=== PATIENT | female | born 2000 | race Caucasian/White ===

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

== ENCOUNTER 2019-03-15 23:20 | Inpatient (IN) | payer BC ==
[~2019-03-15] VITALS: Ht 149.9 cm; Wt 63.8 kg
[2019-03-16 00:57] VITALS: BP 99/57; PULSE 16; RESP 16
[2019-03-16] MEDS ORDERED: LACTATED RINGER'S 1,000 ML IV PRN (00:58)
[2019-03-16] MEDS ORDERED: METHYLERGONOVINE 0.2 MG INJ IM PRN ×2 (01:00→07:00)
[2019-03-16] MEDS ORDERED: CARBOPROST 250 MCG INJ IM PRN ×2 (01:00→07:00)
[2019-03-16] MEDS ORDERED: MISOPROSTOL 200 MCG TAB PR PRN ×2 (01:00→07:00)
[2019-03-16] MEDS ORDERED: OXYTOCIN 30 UNITS/LR 500 ML IV SCH ×3 (01:00→06:38)
[2019-03-16] MEDS ORDERED: LIDOCAINE 1% (MPF) 30 ML INJ INJ PRN (01:00)
[2019-03-16] MEDS ORDERED: OXYTOCIN 30 UNITS/LR 500 ML IV PRN ×2 (01:00→07:00)
[2019-03-16] MEDS ORDERED: MINERAL OIL LIGHT 10 ML VIAL TOP ONE (01:00)
[2019-03-16] MEDS ORDERED: AMPICILLIN 2 GM/NS (PMX) 100 ML IV ONE (01:00)
[2019-03-16] MEDS ORDERED: IBUPROFEN 600 MG TAB PO PRN (01:00)
[2019-03-16] MEDS ORDERED: BUTORPHANOL 2 MG INJ IV PRN ×2 (01:00)
[2019-03-16] MEDS: LACTATED RINGER'S 1,000 ML IV SCH ×2 (01:41→08:24)
--- NOTE | 2019-03-16 04:22 | HP ---
Date/Time of Note Date/Time of Note DATE: 03/16/19 TIME: 04:20 OB - History Hx of Present Free Text/Dictation @38+wks GA in labor : 2 Para: 1 Care: Good Care Ultrasounds: Normal mid trimester US Obstetrical Complications: None Medical Complications: None Past Family/Social History * Past Medical, Surgical, Family and Obstetric Histories reviewed from chart. OB Admission Exam Vital Signs Vital Signs Vital Signs Date Temp Pulse Resp B/P (MAP) Pulse Ox O2 O2 Flow FiO2 Time Delivery Rate 03/16/19 98.3 16 16 99/57 (71) Room Air 00:57 Physical Exam Abdomen: WNL Extremities: Normal Cervical Dilatation: 4cm Effacement: 75% Station: -1 Membranes: Intact Heart Rate: 140's Accelerations: Accelerations Present Decelerations: No Decelerations Varibility: Moderate Contractions on Admission: 6-10 Minutes Apart Last 72 hours Lab Results CBC & BMP 03/16/19 01:30 OB Assessment/Plan Reason for admission: observation Other Assessment: PMH denies PSH Denies Plan: Expectant Management SABIHA SANCHES M.D. Mar 16, 2019 04:22
[2019-03-16] MEDS ORDERED: AMPICILLIN 1 GM/NS (PMX) 50 ML IV SCH (05:00)
[2019-03-16 06:46] VITALS: BP 121/71; PULSE 69; RESP 19
[2019-03-16] MEDS ORDERED: SENNA/DOCUSATE NA (8.6MG/50MG) TAB PO PRN (07:00)
[2019-03-16] MEDS ORDERED: LANOLIN HPA 1 PKT TOP PRN (07:00)
[2019-03-16] MEDS ORDERED: NACL 0.9% 3 ML SYG IV SCH (07:00)
[2019-03-16] MEDS ORDERED: OXYCODONE/ASPIRIN (4.88/325) TAB PO PRN (07:00)
[2019-03-16] MEDS ORDERED: ZOLPIDEM 5 MG TAB PO PRN (07:00)
[2019-03-16] MEDS ORDERED: BENZOCAINE 20% 56 ML SPRAY TOP PRN (07:00)
[2019-03-16] MEDS ORDERED: WITCH HAZEL/GLYCERIN PAD PR PRN (07:00)
[2019-03-16 07:30] VITALS: BP 115/70; PULSE 69; RESP 17
[2019-03-16] MEDS: SENNA/DOCUSATE NA (8.6MG/50MG) TAB PO SCH ×2 (09:10→21:29)
[2019-03-16] MEDS: IBUPROFEN 600 MG TAB PO SCH ×3 (11:26→23:58)
[2019-03-16 15:57] VITALS: BP 109/53; PULSE 76; RESP 20
[2019-03-16 20:20] VITALS: BP 107/55; PULSE 72; RESP 18
[2019-03-17 04:00] VITALS: BP 102/68; PULSE 70; RESP 17
--- NOTE | 2019-03-17 04:48 | TRIAGE ---
OB Triage Datetime Report Generated by CPN: 03/17/2019 04:47 Datetime: 03/16/2019 05:52 Stage of : Recovery Pain Assessment Pain Scale: 6 Pain Presence: Intermittent Pain Type: Cramping Pain Location: Abdomen Pain Goal: 6 Pain Relief Measures: Pain Medication Given (Annotations: MOTRIN 600 MG GIVEN PO @ [id number]) Datetime: 03/16/2019 05:36 Stage of : Recovery Pain Assessment Pain Scale: 6 Pain Presence: Intermittent Pain Type: Cramping Pain Location: Abdomen Pain Goal: 6 Pain Relief Measures: Comfort Measures Datetime: 03/16/2019 05:21 Stage of : Recovery Pain Assessment Pain Scale: 6 Pain Presence: Intermittent Pain Type: Cramping Pain Location: Abdomen Pain Goal: 6 Pain Relief Measures: Comfort Measures Datetime: 03/16/2019 05:06 Stage of : Recovery Pain Assessment Pain Scale: 6 Pain Presence: Intermittent Pain Type: Cramping Pain Location: Abdomen Pain Goal: 6 Pain Relief Measures: Comfort Measures Datetime: 03/16/2019 04:51 Stage of : Recovery Temperature Route: Oral Pain Assessment Pain Scale: 6 Pain Presence: Intermittent Pain Type: Cramping Pain Location: Abdomen Pain Goal: 6 Pain Relief Measures: Comfort Measures Datetime: 03/16/2019 04:48 Stage of : Labor Labor Evaluation Frequency: 1-3 Monitor Mode: External Duration (sec)2399: 40-60 Quality: Strong Pattern: Normal: <= 5 Contractions in 10 Minutes Resting Tone [place]: Relaxed Heart Rate FHR Baseline Rate: 135 Monitor Mode: External US Variability: Moderate 6-25 bpm Accelerations: 15X15 Decelerations: Early Category: Category I Datetime: 03/16/2019 04:42 Vaginal Exam Dilatation (cms): 10.0 Effacement (%): 100 Station: 0 Exam By: MD GHAYOORI Datetime: 03/16/2019 04:34 Vaginal Exam Dilatation (cms): 9.5 Effacement (%): 90 Station: -1 Exam By: Cheko ANDERSON RN Vaginal Bleeding: Normal Show Datetime: 03/16/2019 04:31 Stage of : Labor Labor Evaluation Frequency: 1-3 Monitor Mode: External Duration (sec)2399: 40-90 Quality: Strong Pattern: Normal: <= 5 Contractions in 10 Minutes Resting Tone [place]: Relaxed Heart Rate FHR Baseline Rate: 135 Monitor Mode: External US Variability: Moderate 6-25 bpm Accelerations: 15X15 Decelerations: None Category: Category I Pain Assessment Pain Scale: 10 Pain Presence: Intermittent Pain Type: Contraction Pain Location: Abdomen Pain Goal: 7 Pain Relief Measures: Comfort Measures Datetime: 03/16/2019 04:22 Vaginal Exam Dilatation (cms): 9.0 Effacement (%): 90 Station: -1 Exam By: Cheko ANDERSON, RN Datetime: 03/16/2019 04:15 Membrane Status: Ruptured Membranes Rupture Method: Artificial Amniotic Fluid Color: Clear Amniotic Fluid Amount: Small Amniotic Fluid Odor: None Datetime: 03/16/2019 04:02 Stage of : Labor Labor Evaluation Frequency: 2-4 Monitor Mode: External Duration (sec)2399: 40-70 Quality: Strong Pattern: Normal: <= 5 Contractions in 10 Minutes Resting Tone [place]: Relaxed Heart Rate FHR Baseline Rate: 140 Monitor Mode: External US Variability: Moderate 6-25 bpm Accelerations: 15X15 Decelerations: None Category: Category I Pain Assessment Pain Scale: 10 Pain Presence: Intermittent Pain Type: Contraction Pain Location: Abdomen Pain Goal: 7 Pain Relief Measures: Comfort Measures Datetime: 03/16/2019 03:36 Vaginal Exam Dilatation (cms): 8.0 Effacement (%): 90 Station: -1 Exam By: Cheko ANDERSON RN Membrane Status: Bulging Vaginal Bleeding: None Cervix, Consistency: Moderate Cervix, Position: Midposition Datetime: 03/16/2019 03:32 Stage of : Labor Labor Evaluation Frequency: 1.5-5 Monitor Mode: External Duration (sec)2399: 30-90 Quality: Strong Pattern: Normal: <= 5 Contractions in 10 Minutes Resting Tone [place]: Relaxed Heart Rate FHR Baseline Rate: 130 Monitor Mode: External US Variability: Moderate 6-25 bpm Accelerations: 15X15 Decelerations: None Category: Category I Pain Assessment Pain Scale: 10 Pain Presence: Intermittent Pain Type: Contraction Pain Location: Abdomen; Back Pain Goal: 7 Pain Relief Measures: Comfort Measures Datetime: 03/16/2019 03:00 Stage of : Labor Labor Evaluation Frequency: 2-4 Monitor Mode: External Duration (sec)2399: 40-90 Quality: Moderate Pattern: Normal: <= 5 Contractions in 10 Minutes Resting Tone [place]: Relaxed Heart Rate FHR Baseline Rate: 140 Monitor Mode: External US Variability: Moderate 6-25 bpm Accelerations: 15X15 Decelerations: None Category: Category I Pain Assessment Pain Scale: 7 Pain Presence: Intermittent Pain Type: Contraction Pain Location: Abdomen; Back Pain Goal: 7 Pain Relief Measures: Comfort Measures Datetime: 03/16/2019 02:58 Vaginal Exam Dilatation (cms): 5.0 Effacement (%): 80 Station: -1 Exam By: Cheko ANDERSON RN Membrane Status: Bulging Vaginal Bleeding: None Cervix, Consistency: Moderate Cervix, Position: Midposition Datetime: 03/16/2019 02:30 Stage of : Labor Labor Evaluation Frequency: 1-5 Monitor Mode: External Duration (sec)2399: 50-120 Quality: Moderate Pattern: Normal: <= 5 Contractions in 10 Minutes Resting Tone [place]: Relaxed Heart Rate FHR Baseline Rate: 130 Monitor Mode: External US Variability: Moderate 6-25 bpm Accelerations: 15X15 Decelerations: None Category: Category I Pain Assessment Pain Scale: 7 Pain Presence: Intermittent Pain Type: Contraction Pain Location: Abdomen; Back Pain Goal: 7 Pain Relief Measures: Comfort Measures Datetime: 03/16/2019 02:01 Stage of : Labor Labor Evaluation Frequency: 2-4 Monitor Mode: External Duration (sec)2399: 40-80 Quality: Moderate Pattern: Normal: <= 5 Contractions in 10 Minutes Resting Tone [place]: Relaxed Heart Rate FHR Baseline Rate: 130 Monitor Mode: External US Variability: Moderate 6-25 bpm Accelerations: 15X15 Decelerations: None Category: Category I Pain Assessment Pain Scale: 7 Pain Presence: Intermittent Pain Type: Contraction Pain Location: Abdomen Pain Goal: 7 Pain Relief Measures: Comfort Measures Datetime: 03/16/2019 01:25 Assessment Type: Admission Assessment Vaginal Bleeding: None Maternal Assessment Level of Consciousness: Fully Conscious DTR's/Clonus: DTRs 2+; No Clonus Headache: Denies Blurred Vision: No Respiratory Effort: Unlabored Breath Sounds, Left: Clear and Equal Breath Sounds, Right: Clear and Equal Nausea/Vomiting: Denies RUQ Epigastric Pain: Denies Lower Extremities Edema: None Degree: None Upper Extremities Edema: None Degree: None Facial Edema: None Fall Risk Assessment History of Falling: (0) No Secondary Diagnosis: (0) No Ambulatory Aid: (0) Bedrest/Nurse Assist IV Therapy: (0) No Gait: (0) Normal/Bedrest/Immobile Mental Status: (0) Oriented to Own Ability Fall Score: 0 Fall Risk Score Definition: No Risk: No action required Labor Evaluation Frequency: 4-5 Monitor Mode: External Duration (sec)3119: 70-90 Quality: Moderate Pattern: Normal: <= 5 Contractions in 10 Minutes Resting Tone [place]: Relaxed Heart Rate FHR Baseline Rate: 135 Monitor Mode: External US Variability: Moderate 6-25 bpm Accelerations: 15X15 Decelerations: None Category: Category I Pain Assessment Pain Scale: 7 Pain Presence: Intermittent Pain Type: Contraction Pain Location: Abdomen Pain Goal: 7 Pain Relief Measures: Comfort Measures Membrane Status: Intact Datetime: 03/16/2019 01:18 Membranes Ruptured Date/Time: 03/16/2019 04:15 Datetime: 03/16/2019 01:15 Time of Arrival: 03/15/2019 23:19 EGA: 38.1 Arrived By: Ambulatory Arrived From: Home Chief Complaint: c/o ucs and spotting Movement: Present Contractions: Regular Time Contractions Began: 03/15/2019 21:00 Contractions: q3 Rupture of Membranes: Denies Vaginal Bleeding: Scant Vaginal Discharge: Present Recent Sexual Intercouse: Denies Abdominal Trauma: Not Applicable Patient Complaints: Contractions Time Provider Notified: 03/16/2019 05:04 Provider Notified: Dr Evans Initial Plan: EFM,SVE Datetime: 03/16/2019 00:42 Stage of : OB Triage Labor Evaluation Frequency: 2-5 Monitor Mode: External Duration (sec)2399: 60 Quality: Moderate Pattern: Normal: <= 5 Contractions in 10 Minutes Resting Tone [place]: Relaxed Heart Rate FHR Baseline Rate: 140 Monitor Mode: External US FHR Baseline Changes: No Baseline Change Variability: Moderate 6-25 bpm Accelerations: 15X15 Decelerations: None Category: Category I Vaginal Exam Dilatation (cms): 4.0 Effacement (%): 60 Station: -2 Exam By: Tish Maharaj Membrane Status: Intact Vaginal Bleeding: Scant Cervix, Consistency: Soft Cervix, Position: Posterior Presentation 'A': Cephalic Datetime: 03/16/2019 00:39 Monitor Mode: External
[2019-03-17] MEDS: IBUPROFEN 600 MG TAB PO SCH ×3 (05:50→17:19)
[2019-03-17 07:50] VITALS: BP 97/57; PULSE 58; RESP 16
[2019-03-17] MEDS: SENNA/DOCUSATE NA (8.6MG/50MG) TAB PO SCH ×2 (08:16→21:37)
--- NOTE | 2019-03-17 09:59 | QN ---
Documentation Comment ppd#1 is stable afebrile .tolerates diet No VB +BM +voids VS table Gen NAD Abd soft NT ND Genitalia no blood at perineum --->discharge with precautions --->Questions answered SABIHA Small M.D. Mar 17, 2019 09:59
--- NOTE | 2019-03-17 10:01 | DS ---
Date/Time of Note Date/Time of Note DATE: 03/17/19 TIME: 10:01 Discharge Summary Admission/Discharge Info Admit Date/Time Mar 16, 2019 at 00:54 Discharge Date/Time 03/17/2019 Discharge Diagnosis Patient Condition: Good Hospital Course uneventful Home Meds Reported Medications [id number] ( 19) 1 Each Tablet, 1 TAB PO DAILY, TAB 08/11/17 Primary Care Provider Care Physician No Primary Pending Labs Laboratory Tests Test 03/17/19 06:18 White Blood Count 10.8 10^3/ul (4.8-10.8) Red Blood Count 3.65 10^6/ul (4.20-5.40) Hemoglobin 7.6 g/dl (12.0-16.0) Hematocrit 26.1 % (37.0-47.0) Mean Corpuscular Volume 71.5 fl (72.0-104.0) Mean Corpuscular Hemoglobin 20.8 pg (29.0-33.0) Mean Corpuscular Hemoglobin Concent 29.1 g/dl (32.0-37.0) Red Cell Distribution Width 19.1 % (11.5-14.5) Platelet Count 301 10^3/UL (140-415) Mean Platelet Volume 10.0 fl (7.4-10.4) Immature Granulocytes % 1.800 % (0.001-0.429) Neutrophils % 59.9 % (30.0-74.0) Lymphocytes % 30.4 % (18.0-55.0) Monocytes % 7.2 % (0.0-13.0) Eosinophils % 0.6 % (0.0-7.0) Basophils % 0.1 % (0.0-2.0) Nucleated Red Blood Cells % 0.2 /100WBC (0.0-0.0) Immature Granulocytes # 0.200 10^3/ul (0.0-0.031) Neutrophils # 6.5 10^3/ul (1.6-7.5) Lymphocytes # 3.3 10^3/ul (0.8-2.9) Monocytes # 0.8 10^3/ul (0.3-0.9) Eosinophils # 0.1 10^3/ul (0.0-0.5) Basophils # 0.0 10^3/ul (0.0-0.1) Nucleated Red Blood Cells # 0.0 10^3/ul (0.0-0.0) SABIHA SANCHES M.D. Mar 17, 2019 10:01
--- NOTE | 2019-03-17 13:02 | LDN ---
Date/Time of Note Date/Time of Note DATE: 03/17/19 TIME: 13:01 Delivery Summary Weeks of Gestation 38+ Placenta Delivered: Spontaneously Meconium: none Episiotomy: No Perineal laceration: 1 Anesthesia type: Local Sponge & Needle done & correct: Yes All needle counts correct: Yes Any foreign bodies felt in the: No Delivery Information Apgars 1 Minute: 8 5 Minute: 9 Suctioning Nose & mouth suctioned at osfia: Yes Delee suction performed: Yes Umbilical Cord Umbilical cord with: 3 Vessels Cord presentations: no nuchal cord Cord Blood was obtained: Yes Mother & Baby Disposition Disposition Delivery on 03/16/2019 Mom & Baby to Maternity; Good: Yes Baby to NICU: No SABIHA SANCHES M.D. Mar 17, 2019 13:02
[2019-03-17 16:00] VITALS: BP 106/60; PULSE 69; RESP 16
[2019-03-17 20:15] VITALS: BP 106/66; PULSE 67; RESP 17
[2019-03-18] MEDS: IBUPROFEN 600 MG TAB PO SCH ×3 (00:03→12:18)
[2019-03-18 03:54] VITALS: BP 109/60; PULSE 71; RESP 18
[2019-03-18 08:15] VITALS: BP 108/65; PULSE 65; RESP 17
[2019-03-18] MEDS ORDERED: DIPHTH/TET/ACEL PERTUSS (ADULT) 0.5 ML VIAL IM* ONE (09:00)
[2019-03-18] MEDS: SENNA/DOCUSATE NA (8.6MG/50MG) TAB PO SCH (10:02)
--- NOTE | 2019-03-19 15:50 | DELSUM ---
Delivery Summary A-C Datetime Report Generated by CPN: 03/19/2019 15:50 DELIVERY PERSONNEL Chief Nurse: Dries, Cayetano MATERNAL INFORMATION Delivery Anesthesia: None Medications in Delivery: LR WITH 30 UNITS PITOCIN Delivery QBL (ml): 200 Placenta Cultured: No Maternal Complications: None LABOR SUMMARY EDC: 03/28/2019 00:00 No. Babies in Womb: 1 Attempted: No Labor Anesthesia: None LABOR INFORMATION Reason for Induction: Not Applicable Onset of Labor: 03/15/2019 21:00 Complete Dilatation: 03/16/2019 04:42 Oxytocin: N/A Group B Beta Strep: Not Done Antibiotics # of Doses: 1 Antibiotics Time of Last Dose: 03/16/2019 01:47 Steroids Given: None Reason Steroids Not Administered: Not Applicable MEMBRANES Membranes Rupture Method: Artificial Rupture of Membranes: 03/16/2019 04:15 Length of Rupture (hr): 0.55 Amniotic Fluid Color: Clear Amniotic Fluid Amount: Small Amniotic Fluid Odor: None STAGES OF LABOR Stage 1 hr: 7 Stage 1 min: 42 Stage 2 hr: 0 Stage 2 min: 6 Stage 3 hr: 0 Stage 3 min: 2 Total Time in Labor hr: 7 Total Time in Labor min: 50 VAGINAL DELIVERY Episiotomy: None Laceration Extension: Second Degree Laceration Type: Vaginal Laceration Repair: Yes Initial Vag Sponge Count: 10 Final Vag Sponge Count: 10 Initial Vag Sharps Count: 1 Final Vag Sharps Count: 2 Sponge Count Correct: Yes; Vaginal Sweep Performed Sharps Count Correct: Yes BABY A INFORMATION Delivery Date/Time: 03/16/2019 04:48 Method of Delivery: Vaginal Born in Route : No : N/A Forceps: N/A Vacuum Extraction: N/A Shoulder Dystocia : N/A SHOULDER DYSTOCIA BABY A Delivery Date/Time: 03/16/2019 04:48 PRESENTATION/POSITION BABY A Presentation: Cephalic Cephalic Presentation: Vertex Vertex Position: Left Occipital Anterior Breech Presentation: N/A PLACENTA INFORMATION BABY A Placenta Delivery Time : 03/16/2019 04:50 Placenta Method of Delivery: Spontaneous Placenta Status: Delivered SCORES BABY A Heart Rate 1 min: >100 bpm Resp Effort 1 min: Good Cry Reflex Irritability 1 min: Cough/Sneeze/Pulls Away Muscle Tone 1 min: Active Motion Color 1 min: Blue/Pale Resuscitation Effort 1 min: Tactile Stimulation SCORE 1 MIN: 8 Heart Rate 5 min: >100 bpm Resp Effort 5 min: Good Cry Reflex Irritability 5 min: Cough/Sneeze/Pulls Away Muscle Tone 5 min: Active Motion Color 5 min: Body [place], Extremit Blue Resuscitation Effort 5 min: Tactile Stimulation SCORE 5 MIN: 9 INFANT INFORMATION BABY A Gestational Age at Delivery: 38.2 Gestational Status: Early Term- 37- 38.6 Weeks Outcome : Liveborn Infant Condition : Stable Infant Sex: Female IDENTIFICATION/MEDS BABY A ID Band Number: [id number] ID Band Location: Right Leg; Left Arm Sensor Applied: Yes Sensor Number: [id number] Sensor Location : Cord Clamp Vitamin K Given : Not Given Erythromycin Given: Not Given WEIGHT/LENGTH BABY A Infant Birthweight (gm): 3190 Weight (lb): 7 Weight (oz): 1 Infant Length (in): 19.00 Infant Length (cm): 48.26 CORD INFORMATION BABY A No. Cord Vessels: 3 Nuchal Cord : N/A Cord Blood Taken: Yes Suction: Mouth; Nose ASSESSMENT BABY A Infant Complications: None Physical Findings at Delivery: Within Normal Limits Infant Respirations: Appears Normal Wearing Apparel Shaker/ALS Called : No Care By: DIANE Zuluaga RN Transferred To: Remains with Mother
== END 2019-03-18 15:35 | disposition home or self-care (01) | DRG 807 ==
LOC: OBT 23:20 → L-D 23:20 → OBT 03-16 00:54 → PP1 03-16 06:37
PROVIDERS: ADMIT Obstetrics & Gynecology; ATTEND Obstetrics & Gynecology
PROC: 10E0XZZ Delivery of Products of Conception, External Approach (ICD-10-PCS; principal; 2019-03-17)
PROC: 0HQ9XZZ Repair Perineum Skin, External Approach (ICD-10-PCS; 2019-03-17)
DX: O70.9 Perineal laceration during delivery, unspecified (principal); Z37.0 Single live birth; Z3A.38 38 weeks gestation of pregnancy
CPT/HCPCS: 76815; 80307; 85025; 85610; 85730; 86592; 86762; 86850; 86870; 86885; 86900; 86901; 87340; G0463; J0290; J2210; J2590; J2790; J7120